=== PATIENT | female | born 1935 | race Caucasian/White ===

== ENCOUNTER 2018-08-31 09:55 | Emergency (ER) | payer OTHER ==
[~2018-08-31] VITALS: Ht 157.5 cm; Wt 63.5 kg
[~2018-08-31 09:55] MED LIST: MULTI VITAMIN1 EACH PO; PROTONIX40 M2; VICODIN 5-3001 EACH
[2018-08-31 10:53] LABS: URINE BILIRUBIN NEGATIVE (Negative); URINE BLOOD 1+ (Negative); URINE CLARITY CLOUDY; URINE COLOR YELLOW; URINE GLUCOSE-RANDOM NEGATIVE (Negative); URINE KETONES NEGATIVE (Negative); URINE PROTEIN NEGATIVE (Negative); URINE UROBILINOGEN 0.2 E.U./dl (0.2-1.0)
[2018-08-31 10:54] LABS: URINE LEUKOCYTES-REFLEX 3+ (Negative); URINE NITRITE-REFLEX POSITIVE (Negative)
[2018-08-31 11:00] LABS: SQUAMOUS 4-10 Moderate /LPF (0-3); URINE WBC-REFLEX >25 Many /HPF (0-5)
[2018-08-31 11:01] LABS: BACTERIA-REFLEX >30 Many /HPF (None Seen); CASTS None Seen /LPF (None Seen); CRYSTALS None Seen /LPF (None Seen); MUCUS 0-3 Light strn/LPF (None Seen); URINE RBC 3-10 Few /HPF (0-2); WBC CLUMPS Few (None Seen)
[2018-08-31] MEDS ORDERED: VENTOLIN HFA 1818 GM INH (11:37)
[2018-08-31] MEDS ORDERED: KEFLEX500 M2 PO (11:37)
[2018-08-31] MEDS ORDERED: AZITHROMYCIN500 MG PO (11:37)
[2018-08-31 11:48] VITALS: BP 170/50
--- NOTE | 2018-09-01 12:13 | EKG ---
[place] [address] ELECTROCARDIOGRAM REPORT Name: ADDISON EARL [id number] Admission: 08/31/18 Attend Phys: Discharge: 08/31/18 Date of : 39 Report #: [id number] THIS REPORT FOR: //name// [facility] ED Test Date: 2018-08-31 Test Time: 10:21:21 Pat Name: ADDISON EARL Department: Room: Gender: F Process Assistant: NATHALIE : 1935 Requested By: Roxy Green Order Number: [id number] MD: Fernandez Quispe Measurements Intervals [place] Rate: 60 P: 63 [place]: 165 QRS: 14 QRSD: 93 T: 40 QT: 417 QTc: 417 Interpretive Statements Sinus rhythm Compared to ECG 10/11/2012 11:23:50 Sinus bradycardia no longer present Electronically Signed On 09-01-2018 12:12:49 CDT by Fernandez Qiuspe [email or web address] <ELECTRONICALLY SIGNED> By: Fernandez Quispe MD, [facility] 09/01/18 1212 1021 102 Fernandez Quispe MD, FACC /EPI
== END 2018-08-31 11:48 | disposition home or self-care (01) ==
LOC: M.ERS 09:55
PROVIDERS: Nurse Practitioner Family
DX: J18.9 Pneumonia, unspecified organism (principal); N39.0 Urinary tract infection, site not specified; Z90.710 Acquired absence of both cervix and uterus; Z90.49 Acquired absence of other specified parts of digestive tract; Z98.890 Other specified postprocedural states

== ENCOUNTER 2020-01-12 07:32 | Inpatient (IN) | payer MEDICARE ==
[~2020-01-12] VITALS: Ht 157.5 cm; Wt 61.7 kg
--- NOTE | ~2020-01-12 | PROC ---
[address] [address] PROCEDURE REPORT Name: ADDISON EARL Room: [address] IN M.R.#: [id number] Admission: 01/12/20 Attend Phys: John Horan MD Discharge: 01/15/20 Date of : 39 Report #: [id number] THIS REPORT FOR: //name// cc: Dolores Lerma MD, Marjon MD ~ THIS REPORT FOR: //name// For GI report, please see the Provation report in Perceptive 7 content. By: 1358Medical Records Staff ZE /ZAIRE
--- NOTE | ~2020-01-12 | PROC ---
[address] [address] PROCEDURE REPORT Name: ADDISON EARL Room: [address] IN M.R.#: [id number] Admission: 01/12/20 Attend Phys: John Horan MD Discharge: 01/15/20 Date of : 39 Report #: [id number] THIS REPORT FOR: //name// cc: Dolores Lerma MD, Marjon MD ~ THIS REPORT FOR: //name// For GI report, please see the Provation report in Perceptive 7 content. By: 1400Medical Records Staff JUMANA /ZAIRE
[~2020-01-12 07:32] MED LIST changes: +AZITHROMYCIN500 MG PO; +KEFLEX500 M2 PO; +VENTOLIN HFA 1818 GM INH
[2020-01-12 07:41] VITALS: BP 157/65
[2020-01-12 08:04] LABS: ABSOLUTE BASOPHILS 0.2 thou/uL (0.0-0.2); ABSOLUTE LYMPHOCYTES 2.7 thou/uL (0.8-5.3); ABSOLUTE MONOCYTES 1.4 thou/uL (0.0-1.2); ABSOLUTE NEUTROPHILS 13.5 thou/uL (1.6-8.1); BASOPHILS 1.1 %; EOSINOPHILS 0.1 %; HEMATOCRIT 37.4 % (37.0-47.0); HEMOGLOBIN 12.1 gm/dL (12.0-15.0); LYMPHOCYTES 15.3 %; MCHC 32.3 g/dL (28.0-37.0); MONOCYTES 7.9 %; MPV 8.9 fl. (7.2-11.1); NUCLEATED RBCS 0 /100WBC; PLATELET COUNT* 254 thou/uL (150-400); POLYS 75.6 %; RBC 5.76 mil/uL (4.20-5.00); RDW-CV 16.5 % (10.5-14.5); WBC 17.9 thou/uL (4.0-11.0)
[2020-01-12 08:11] LABS: APTT 24.6 Seconds (25.0-31.3); INR 1.1; PROTIME 10.9 Seconds (9.20-11.50)
[2020-01-12 08:31] LABS: CALCIUM 8.3 mg/dL (8.5-10.1); CREATININE 0.9 mg/dL (0.6-1.3); POTASSIUM 3.6 mmol/L (3.5-5.1)
[2020-01-12 08:35] LABS: ALBUMIN 3.7 g/dL (3.4-5.0); TOTAL BILIRUBIN 2.7 mg/dL (<0.1-1.0); TOTAL PROTEIN 7.7 g/dL (6.4-8.2)
[2020-01-12 08:56] LABS: ANISOCYTOSIS 2+; PLATELET ESTIMATE ADEQUATE
[2020-01-12 08:57] LABS: MICROCYTES 2+
[2020-01-12 09:10] LABS: URINE BILIRUBIN NEGATIVE (Negative); URINE BLOOD 2+ (Negative); URINE CLARITY CLEAR; URINE COLOR YELLOW; URINE GLUCOSE-RANDOM NEGATIVE (Negative); URINE KETONES NEGATIVE (Negative); URINE LEUKOCYTES-REFLEX 1+ (Negative); URINE NITRITE-REFLEX NEGATIVE (Negative); URINE PROTEIN NEGATIVE (Negative); URINE UROBILINOGEN 0.2 E.U./dl (0.2-1.0)
[2020-01-12 09:24] LABS: BACTERIA-REFLEX 1-9 Few /HPF (None Seen); CASTS None Seen /LPF (None Seen); CRYSTALS None Seen /LPF (None Seen); MUCUS None Seen strn/LPF (None Seen); SQUAMOUS >10 Many /LPF (0-3); URINE RBC 3-10 Few /HPF (0-2); URINE WBC-REFLEX 0-5 Rare /HPF (0-5)
--- NOTE | 2020-01-12 10:57 | EKG ---
[place] [address] ELECTROCARDIOGRAM REPORT Name: ADDISON EARL Room: [facility]#: [id number] Admission: 01/12/20 Attend Phys: Discharge: Date of : 39 Date of Service: 01/12/20 0752 Report #: [id number] THIS REPORT FOR: //name// [facility] ED Test Date: 2020-01-12 Test Time: 07:52:55 Pat Name: ADDISON EARL Department: Room: Gender: F Superintendent [employer]: Christian Daugherty : 1935 Requested By: Bethany Figueroa Order Number: [id number] MD: Fernandez Quispe Measurements Intervals [place] Rate: 79 P: 0 CO: 158 QRS: 11 QRSD: 102 T: 33 QT: 375 QTc: 430 Interpretive Statements Sinus rhythm artifact noted Compared to ECG 08/31/2018 10:21:21 no change Electronically Signed On 01-12-2020 10:57:13 CDT by Fernandez Quispe [email or web address] <ELECTRONICALLY SIGNED> By: Fernandez Quispe MD, [facility] 01/12/20 1057 0752 0752 Fernandez Quispe MD, [facility] /EPI
[2020-01-12 11:55] VITALS: BP 161/55
[2020-01-12 12:30] VITALS: BP 156/59
[2020-01-12 13:58] LABS: DIRECT BILIRUBIN 0.4 mg/dL (<0.1-0.3); TOTAL BILIRUBIN 2.2 mg/dL (<0.1-1.0)
[2020-01-12 16:13] VITALS: BP 145/53
[2020-01-12 16:18] LABS: HEMATOCRIT 35.9 % (37.0-47.0); HEMOGLOBIN 11.6 gm/dL (12.0-15.0)
[2020-01-12 20:57] VITALS: BP 135/57
[2020-01-13 00:29] VITALS: BP 106/48
[2020-01-13 00:34] LABS: HEMOGLOBIN 10.8 gm/dL (12.0-15.0); MCH 21.5 pg (26.0-34.0); MCHC 32.8 g/dL (28.0-37.0); MCV 65.5 fL (80.0-100.0); MPV 8.7 fl. (7.2-11.1); RBC 5.04 mil/uL (4.20-5.00); RDW-CV 16.5 % (10.5-14.5); WBC 18.2 thou/uL (4.0-11.0)
[2020-01-13 00:40] LABS: CALCIUM 7.9 mg/dL (8.5-10.1); CREATININE 0.9 mg/dL (0.6-1.3); POTASSIUM 3.6 mmol/L (3.5-5.1)
[2020-01-13 00:46] LABS: TOTAL BILIRUBIN 1.5 mg/dL (<0.1-1.0)
[2020-01-13 04:00] VITALS: BP 127/52
--- NOTE | 2020-01-13 05:59 | NUR ---
PT IS ABLE TO COMMUNICATE HER NEEDS TO STAFF EFFECTIVELY. SHE HAS DENIED THE NEED FOR PAIN MEDICATION UP TO THIS TIME. SHE HAS BEEN NPO SINCE MIDNIGHT FOR A GI CONSULT, WITH POSSIBLE PROCEDURE, LATER TODAY.
[2020-01-13 07:49] VITALS: BP 133/42
--- NOTE | 2020-01-13 09:16 | NUR ---
ASSUMED CARE OF PT THIS AM AROUND 07- COMMERCIAL ACCOUNTANT IN PLACE ORDERED, TRACING SR-UPON ASSESSMENT PT NOTED TO BE RESTING IN BED- PT A&O X4- CONT OF BOWEL AND BLADDER- UP AD-DEANDRA IN ROOM, STEADY GAIT NOTED- DIMINISHED LUNG SOUNDS NOTED, CLEAR IN BASES- DYSPNEA NOTED ON EXERTION- VSS, O2 SAT 93% ON RA- ABD SOFT/ROUND/NON-TENDER, BS X4 QUADS- LAST BM REPORTED THIS AM- IV TO LEFT AC NOTED TO BE LEAKING THIS AM, IV D/C'D WITH NEW 20 GAUGE IV PLACED TO RIGHT FA, IVF INFUSSING PRESCRIBED WITH IV ABT GIVEN THIS AM PRESCRIBED- PT CURRENTLY NPO FOR GI CONSULT-PT DENIES ANY C/O PAIN/DISCOMFORT AT THIS TIME- CALL LIGHT AND PERSONAL BELONGINGS WITH IN REACH- PT MAKES NEEDS KNOWN- ALL NEEDS MET AT THIS TIME-WCTM
[2020-01-13 12:21] VITALS: BP 147/41
--- NOTE | 2020-01-13 14:57 | NUR ---
Pt is A&O. Resides at home with her . Independent. No DME. No hx of HH or SNF. Pt to have EGD today. On IVABX. Goal is home at dc, no needs anticipated.
[2020-01-13 15:18] LABS: HEMOGLOBIN 11.9 gm/dL (12.0-15.0); MCH 21.3 pg (26.0-34.0); MCHC 32.2 g/dL (28.0-37.0); MCV 66.2 fL (80.0-100.0); MPV 8.9 fl. (7.2-11.1); RBC 5.59 mil/uL (4.20-5.00); RDW-CV 16.6 % (10.5-14.5); WBC 14.4 thou/uL (4.0-11.0)
[2020-01-13 16:09] VITALS: BP 108/63
[2020-01-13 20:00] VITALS: BP 164/68
[2020-01-14] VITALS: BP 135/62
[2020-01-14 04:00] VITALS: BP 129/58
[2020-01-14 04:36] LABS: HEMATOCRIT 33.2 % (37.0-47.0); HEMOGLOBIN 10.8 gm/dL (12.0-15.0); MCH 21.2 pg (26.0-34.0); MCHC 32.4 g/dL (28.0-37.0); MCV 65.3 fL (80.0-100.0); RBC 5.09 mil/uL (4.20-5.00); RDW-CV 16.4 % (10.5-14.5); WBC 12.9 thou/uL (4.0-11.0)
[2020-01-14 04:46] LABS: CALCIUM 8.1 mg/dL (8.5-10.1); CREATININE 0.7 mg/dL (0.6-1.3)
--- NOTE | 2020-01-14 07:05 | NUR ---
CHANGE OF SHIFT, BEDSIDE REPORT GIVEN PATIENT SEEN AT BEDSIDE, IN BED ASLEEP ASSUMED PATIENT CARE
--- NOTE | 2020-01-14 07:26 | NUR ---
ASSUMED CARE OF PT AFTER REPORT AT 1930. PT A&OX4. VSS. PHYSICAL ASSESSMENT COMPLETED AND CHARTED. PT ON RA. PT TRACING SR ON TELE. PT UPADLIB TO BSC. PT DENIES PAIN. PT FOR COLONOSCOPY THIS AM. INSTRUCTED ON NPO POST MIDNIGHT. COMMUNICATES UNDERSTANDING. POTASSIUM 3.0 THIS AM-ELECTROLYTE PROTOCOL IN PLACE. CALL PRECAUTIONS IN PLACE.
[2020-01-14 08:00] VITALS: BP 150/72
[2020-01-14 16:14] VITALS: BP 159/70
[2020-01-14 20:15] VITALS: BP 138/67
[2020-01-15] VITALS: BP 111/50
[2020-01-15 04:00] VITALS: BP 115/49
--- NOTE | 2020-01-15 05:09 | NUR ---
PT RESTING IN BED AT TIME OF ASSESSMENT, SHE WAS TIRED FROM BUSY DAY OF COLONOSCOPY. AO X4, VSS ON RA. FLUIDS INFUSING WITHOUT ISSUE. PT HAD POTASSIUM REPLACEMENT TODAY AND WAS FINISHED INFUSING THIS PM SHIFT. PT AMBULATED TO TOILET WITHOUT PROBLEM. SHE REQUESTED A SNACK AND SLEPT WELL ALL SHIFT. WE ARE AWAITING LABS TO SEE IF FURTHER REPLACEMENT OF POTASSIUM IS REQUIRED. WCTM
[2020-01-15 08:00] VITALS: BP 125/47
--- NOTE | 2020-01-15 08:00 | NUR ---
AM ASSESSMENT COMPLETE, DEFER TO COMPUTER CHARTING. MANAGER CREDIT TRACKING SR. ALERT ORIENTED. DENIES CHEST PAIN, DIZZINESS OR ANY DISCOMFORT AT THIS TIME. TOLERATING DIET. CALL LIGHT WITHIN REACH. WILL MONITOR.
[2020-01-15] MEDS ORDERED: FLAGYL500 M1 PO (09:01)
[2020-01-15] MEDS ORDERED: CIPRO500 MG PO (09:01)
[2020-01-15] MEDS ORDERED: LACTOBACILLUS1 EACH PO (09:01)
[2020-01-15] MEDS ORDERED: MIRALAX17 GM PO (09:01)
[2020-01-15 12:50] VITALS: BP 125/47
--- NOTE | 2020-01-15 13:38 | NUR ---
DISCHARGE ORDERS RECEIVED. SALES TECHNICIAN AND SALINE LOCK DC'D. PATIENT AND EDUCATED ON DISCHARGE INSTRUCTIONS, VERBALIZED UNDERSTANDING - GIVEN WRITTEN DISCHARGE INSTRUCTIONS FOR REINFORCEMENT TEACHING. ALL PERSONAL BELONGINGS GATHERED BY PATIENT AND . DC'D VIA W/C ACCOMPANIED WITH ALL PERSONAL BELONGINGS.
--- NOTE | 2020-01-18 17:07 | PATH ---
[address] [address] PATHOLOGY RPT PROCEDURE Name: FATOUMATA HOUSTON Room: [address] IN M.R.#: [id number] Admission: 01/12/20 Date of : 39 Discharge: 01/15/20 Report #: [id number] Path Case #: [id number] L[facility] Accession Number: [id number] . 01 Material submitted: . colon - SIGMOID COLON BIOPSY. Modifiers: sigmoid . 01 Clinician provided ICD-10: K92.2 A09 . 01 Clinical history: . EDEMA AND INFLAMMATION; HIGHLY SUSPICIOUS COLONIC ISCHEMIA . 02 Diagnosis: Sigmoid colon biopsy: - Typical of ischemic colitis. See comment. LBQ 01/18/2020 1503 Local . 02 Comment: The biopsies reveal benign colonic mucosa which show evidence of superficial erosion and preservation of the deepest aspects of the crypts where the lamina propria is condensed and possibly fibrotic and in association with scattered neutrophils predominantly in the lamina propria and fresh hemorrhage. There is no significant basal lymphoplasmacytosis or crypt distortion to elevate a concern for inflammatory bowel disease and there are no granulomas or viral inclusions present. (SHARMIN/db; 01/18/2020) . 02 Electronically signed: . Adan Haile MD, Pathologist NPI- [id number] . 01 Gross description: . The specimen is received in formalin, labeled "Fatoumata Houston, sigmoid colon biopsy, edema with inflammation; highly suspicious for colonic ischemia". Received are four segments of pale nuñez soft tissue ranging in size from 0.2 to 0.3 cm in maximum dimensions. The specimen is submitted entirely in cassette A1. (CAA; 01/15/2020) QAC/QAC 01/15/2020 1838 Local . 02 Pathologist provided ICD-10: K52.9 . 02 CPT . 416796 Specimen Comment: A courtesy copy of this report has been sent to [phone] [address] PATHOLOGY RPT PROCEDURE Name: FATOUMATA HOUSTON Room: [address] IN .R.#: [id number] Admission: 01/12/20 Date of : 39 Discharge: 01/15/20 Report #: [id number] Path Case #: [id number] Specimen Comment: [id number], Specimen Comment: Report sent to ,DR MOY / DR BEJARANO Performed at: 01 [facility] [address], [place], [place] [id number] MD Reno Hamilton MD Phone: [phone] Performed at: 02 [facility] [address], [place], [place] [id number] MD Adan Haile MD Phone: [phone]
== END 2020-01-15 13:41 | disposition home or self-care (01) | DRG 371 ==
LOC: M.ERS 07:32 → M.TBA-ER 11:10 → M.2W 11:10
PROVIDERS: Internal Medicine Gastroenterology; Personal Emergency Response Attendant; ADMIT Internal Medicine; ATTEND Internal Medicine
PROC: 0DBN8ZX Excision of Sigmoid Colon, Via Natural or Artificial Opening Endoscopic, Diagnostic (ICD-10-PCS; principal; 2020-01-14)
PROC: 0DBM8ZX Excision of Descending Colon, Via Natural or Artificial Opening Endoscopic, Diagnostic (ICD-10-PCS; principal; 2020-01-14)
PROC: 0D758ZZ Dilation of Esophagus, Via Natural or Artificial Opening Endoscopic (ICD-10-PCS; 2020-01-14)
DX: A04.9 Bacterial intestinal infection, unspecified (principal); K57.31 Diverticulosis of large intestine without perforation or abscess with bleeding; R65.10 Systemic inflammatory response syndrome (SIRS) of non-infectious origin without acute organ dysfunction; E80.6 Other disorders of bilirubin metabolism; R13.10 Dysphagia, unspecified; K22.2 Esophageal obstruction; E87.6 Hypokalemia; K64.8 Other hemorrhoids; Z20.828 Contact with and (suspected) exposure to other viral communicable diseases; Z90.710 Acquired absence of both cervix and uterus; Z90.49 Acquired absence of other specified parts of digestive tract; Z87.891 Personal history of nicotine dependence; Z85.3 Personal history of malignant neoplasm of breast; Z79.899 Other long term (current) drug therapy

== ENCOUNTER 2020-09-08 10:09 | Emergency (ER) | payer MEDICARE ==
[~2020-09-08] VITALS: Ht 157.5 cm; Wt 63.5 kg
[~2020-09-08 10:09] MED LIST changes: +CIPRO500 MG PO; +FLAGYL500 M1 PO; +LACTOBACILLUS1 EACH PO; +MIRALAX17 GM PO
[2020-09-08 12:45] LABS: ABSOLUTE BASOPHILS 0.1 thou/uL (0.0-0.2); ABSOLUTE EOSINOPHILS 0.2 thou/uL (0.0-0.7); ABSOLUTE LYMPHOCYTES 3.2 thou/uL (0.8-5.3); ABSOLUTE MONOCYTES 1.4 thou/uL (0.0-1.2); ABSOLUTE NEUTROPHILS 5.6 thou/uL (1.6-8.1); BASOPHILS 0.8 %; EOSINOPHILS 1.7 %; HEMATOCRIT 35.8 % (37.0-47.0); HEMOGLOBIN 11.2 gm/dL (12.0-15.0); LYMPHOCYTES 30.5 %; MCH 20.7 pg (26.0-34.0); MCHC 31.4 g/dL (28.0-37.0); MCV 65.9 fL (80.0-100.0); MONOCYTES 13.1 %; MPV 8.7 fl. (7.2-11.1); NUCLEATED RBCS 0 /100WBC; PLATELET COUNT* 268 thou/uL (150-400); POLYS 53.9 %; RBC 5.42 mil/uL (4.20-5.00); RDW-CV 16.5 % (10.5-14.5); WBC 10.4 thou/uL (4.0-11.0)
[2020-09-08 12:54] LABS: CALCIUM 9.2 mg/dL (8.5-10.1); CREATININE 0.8 mg/dL (0.6-1.3); POTASSIUM 3.9 mmol/L (3.5-5.1)
[2020-09-08 12:58] LABS: ALBUMIN 3.7 g/dL (3.4-5.0); TOTAL BILIRUBIN 1.1 mg/dL (<0.1-1.0); TOTAL PROTEIN 7.7 g/dL (6.4-8.2)
[2020-09-08 13:19] LABS: HYPOCHROMASIA 2+
[2020-09-08 13:20] LABS: MICROCYTES 2+
[2020-09-08 13:21] LABS: ANISOCYTOSIS 2+; PLATELET ESTIMATE ADEQUATE; POIKILOCYTOSIS 1+
[2020-09-08] MEDS ORDERED: IBUPROFEN 600600 M1 PO (15:20)
[2020-09-08] MEDS ORDERED: NORCO5 PO ×2 (15:20→15:28)
[2020-09-08] MEDS ORDERED: DOXYCYCLINE 10100 MG PO (15:22)
[2020-09-08 15:40] VITALS: BP 127/42
== END 2020-09-08 15:41 | disposition home or self-care (01) ==
LOC: M.ERS 10:09
PROVIDERS: Physician Assistant
DX: S22.41XA Multiple fractures of ribs, right side, initial encounter for closed fracture (principal); K76.9 Liver disease, unspecified; R93.5 Abnormal findings on diagnostic imaging of other abdominal regions, including retroperitoneum; Z90.710 Acquired absence of both cervix and uterus; Z90.49 Acquired absence of other specified parts of digestive tract; Z79.899 Other long term (current) drug therapy; W18.09XA Striking against other object with subsequent fall, initial encounter; Y93.89 Activity, other specified; Y92.89 Other specified places as the place of occurrence of the external cause; Y99.9 Unspecified external cause status